=== PATIENT | male | born 1940 ===

== ENCOUNTER 2020-04-10 13:12 | Emergency (ER) | payer MEDICARE, OTHER, SELFPAY ==
--- NOTE | ~2020-04-10 | XR_ITS ---
EXAMINATION: XR elbow RT min 3V DATE: 04/10/2020 14:04 INDICATION: Right elbow injury. TECHNIQUE: 4 views of right elbow were obtained. COMPARISON: None. FINDINGS: Bone alignment is normal. No fracture. There is mild elbow joint osteoarthritis. There is a n enthesophyte at olecranon. No elbow joint effusion. Olecranon bursitis is noted. IMPRESSION: 1. Olecranon bursitis. 2. Mild elbow joint osteoarthritis. Reviewed, dictated and finalized at location E.
--- NOTE | 2020-04-10 13:20 | ED.UPPEXIN ---
HPI - Extremity Injury (Upper) General Chief Complaint: Extremity Injury, Upper Stated Complaint: Right Elbow Time Seen by Provider: 04/10/20 13:55 Source: patient and RN notes reviewed Mode of arrival: ambulatory Limitations: no limitations History of Present Illness HPI narrative: 80-year-old male presents with concern for swelling at the right elbow. Reports 1 week ago he bumped his elbow causing a small abrasion. He reports he noticed yesterday painless swelling at the outer elbow. He denies redness, warmth, pain, drainage. Denies elbow pain at rest or with range of motion. Denies fever. Denies wound drainage. Reports wound is scabbed. complaint: injury to: right and elbow Related Data Home Medications Medication Instructions Recorded Confirmed No Home Medications 04/10/20 04/10/20 Allergies Allergy/AdvReac Type Severity Reaction Status Date / Time No Known Allergies Allergy Verified 04/10/20 13:41 Review of Systems Review of Systems: Narrative: CONSTITUTIONAL: Denies malaise, chills, sweats, or fever. CARDIOVASCULAR: Denies chest pain, palpitations RESPIRATORY: Denies dyspnea. SKIN: Reports scab on the right elbow MUSCULOSKELETAL: Denies elbow pain, reports pocket of swelling at the elbow NEUROLOGIC: Denies numbness, weakness. All systems reviewed & are unremarkable except as noted in HPI and below PMFSH Family History Family History (Updated 07/17/14 @ 07:13 by DOCTOR UNKNOWN) Father Family history of Alzheimer's disease Sibling Malignant neoplasm of prostate Social History Social History Smoking status: Former smoker Smoking end date: 11/20/15 Alcohol intake: never Comments At time of signature, agree with nursing past medical, surgical, social and family history. There is no relevant family history pertinent to the presenting complaint Exam Narrative: Exam Narrative: GENERAL: Well-appearing, well-nourished, and in no acute distress. HEAD: Normocephalic, atraumatic. EYES: PERRLA, conjunctivae clear NECK: Supple. CHEST: Speaks in full sentences. No respiratory distress. HEART: Regular rate and rhythm. Normal and equal peripheral pulses. EXTREMITIES: Right elbow, arm, hand, digits has normal strength and sensation, normal range of motion. 5/5 strength with elbow flexion and extension. No pain with range of motion. Normal sensation with sensitivity to light touch and pain. No open wounds, no skin tenting, no devitalized tissue or atrophy, no trophic changes, no ecchymosis, no obvious osteo-deformity, alignment normal, no point tenderness, nearby joints and structures intact. Distal pulses palpable and equal bilaterally, skin warm, dry, pink. Capillary refill less than 3 seconds. Round pocket of soft edema noted at the ulnar head, nonfluctuant with no erythema, induration, warmth, tenderness. SKIN: Warm, dry, no rash. Healing scab noted in the center of the pocket of edema NEURO: Alert and oriented x3. PSYCH: Normal mood and affect Course Course Emergency Course: Patient is aware of diagnosis, understands and agrees to treatment plan. Anticipatory guidance given. Patient agrees to follow-up as directed and is aware of reasons to seek care at the emergency department. Portions of this record may have been created with voice recognition software Vital Signs Vital signs: Vital Signs Temperature 99.4 F 04/10/20 13:25 Pulse Rate 67 04/10/20 13:25 Respiratory Rate 16 04/10/20 13:25 Blood Pressure 157/71 H 04/10/20 13:25 Pulse Oximetry 96 04/10/20 13:25 Temperature 99.4 F 04/10/20 13:25 Pulse Rate 67 04/10/20 13:25 Respiratory Rate 16 04/10/20 13:25 Blood Pressure 157/71 H 04/10/20 13:25 Pulse Oximetry 96 04/10/20 13:25 Reviewed. Pt has been instructed to follow up with his primary care provider within the next week regarding his elevated blood pressure today. MDM - Extremity Injury (Upper) MDM Narrative Medical decision making narrative: P
[2020-04-10 13:25] VITALS: BP 157/71; PULSE 67; RESP 16; TEMP 37.4; O2SAT 96
== END 2020-04-10 14:32 | disposition home or self-care (01) ==
PROVIDERS: Emergency Provider Nurse Practitioner
DX: M70.21 Olecranon bursitis, right elbow (principal); M19.021 Primary osteoarthritis, right elbow; Z87.891 Personal history of nicotine dependence
CPT/HCPCS: 73080; 99203; G0463

== ENCOUNTER 2024-10-22 16:29 | Emergency (ER) | payer MEDICARE, OTHER, SELFPAY ==
[2024-10-22 16:36] VITALS: BP 173/70; PULSE 75; RESP 16; TEMP 36.4; O2SAT 94
[2024-10-22 17:17] LABS: EDCOVIDSCREEN Positive (Negative)
[2024-10-22 17:17] LABS: EDINFLUASCREEN Negative (Negative); EDINFLUBSCREEN Negative (Negative); EDSTREPNEGPOS1 Negative (Negative)
--- NOTE | 2024-10-22 17:58 | ED.GENADULT ---
HPI - General Adult General Chief complaint: Upper Respiratory Infection Stated complaint: throat/head cold Source: patient and family Mode of arrival: ambulatory Limitations: no limitations History of Present Illness HPI narrative: Patient presents for evaluation of respiratory symptoms since yesterday. Symptoms include sinus congestion, postnasal drainage, and cough. No fever, chills, nausea, vomiting, diarrhea. His ex- was recently sick and they both spent time with patient's daughter for the holiday. Patient has an underlying history of COPD was having serial CT scans every 6 months. There is a new area of concern on recent CT so interval was then changed to every 3 months. He had his last CT scan yesterday. 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 He is not taking any medication [id number] to assist with the symptoms. He smokes approximately 8 cigarettes per day. His daughter lives 5 blocks away from him and checks on him frequently. Related Data Home Medications Medication Instructions Recorded Confirmed amlodipine 10 mg tablet mg 10/22/24 finasteride 5 mg tablet mg 10/22/24 fluticasone fur. 100 mcg-umeclid inhalation 10/22/24 62.5 mcg-vilant 25 mcg inhalat.powder (Trelegy Ellipta) tamsulosin 0.4 mg capsule mg PO 10/22/24 Allergies Allergy/AdvReac Type Severity Reaction Status Date / Time No Known Allergies Allergy Verified 04/10/20 13:41 Review of Systems Review of Systems: CONSTITUTIONAL: Denies fever, chills, or sweats. EYES: Denies visual changes, redness, or discharge. ENT: Reports sinus congestion and postnasal drainage. Denies otalgia and sore throat CARDIOVASCULAR: Denies chest pain, palpitations, or edema. RESPIRATORY: Reports cough. Denies dyspnea. GASTROINTESTINAL: Denies abdominal pain, nausea, vomiting, or diarrhea. GENITOURINARY: Denies dysuria or hematuria. SKIN: Denies rash or itching. MUSCULOSKELETAL: Denies back pain, joint pain, or myalgia. NEUROLOGIC: Denies headache, numbness, dizziness, or weakness. PSYCHIATRIC: Denies anxiety or depression. [facility], [facility] Past Medical History Medical History COPD (chronic obstructive pulmonary disease) Hypertension Surgical History Surgical History No pertinent past surgical history Family History Family History Father Family history of Alzheimer's disease Sibling Malignant neoplasm of prostate Social History Social History (Updated 10/22/24 @ 18:01 by Irvin Morales [facility], ) Smoking packs per day: 0.4 Smoking cigarettes per day: 8.0 Smoking status: Current every day smoker Smoking end date: 11/20/15 Alcohol intake: never Substance use: never Living arrangements: alone Gender identity (if verbalized by the patient): Male Sexual Orientation (if Verbalized by the Patient): Straight or Heterosexual Exam Narrative: GENERAL: Well-appearing, well-nourished, and in no acute distress. HEAD: Normocephalic, atraumatic. EYES: PERRLA and EOMI. ENT: Nares clear, no rhinorrhea or epistaxis. Mucous membranes moist. Oropharynx without tonsillar hypertrophy exudate or other lesions. Bilateral TMs pearly jordan nonbulging NECK: Supple. No adenopathy or masses. No carotid bruits or JVD CHEST: Wheezing in bilateral upper lobes. Cough present on exam HEART: Regular rate and rhythm. No murmur heard. Normal peripheral pulses. ABDOMEN: Soft, nontender, nondistended, normal active bowel sounds. EXTREMITIES: Normal range of motion. No edema. SKIN: Warm, dry, no rash. NEURO: No focal deficits. Alert and oriented x3. PSYCH: Normal mood and affect. Course Course Emergency Course: This is an 84-year-old male who presented for evaluation of respiratory symptoms. COVID positive. He does have some wheezing on exam. Will discharge with prednisone. O2 sats are normal on room air. Advised smoking cessation. I also recommended he contact his school bus mechanic tomorrow for an appointment. He had a CT scan yesterday so chest x-ray was not performed today. He should follow-up with his primary provider and should contact them tomorrow to determine whether they can start him on medication for smoking cessation. In the event that he has worsening symptoms he should go to the emergency department. His daughter, present today, will check on him frequently. Patient and family in agreement with plan of care Level of Care: Express Care Visit Vital Signs Vital signs: Vital Signs Temperature 36.4 C 10/22/24 16:36 Pulse Rate 75 10/22/24 16:36 Respiratory Rate 16 10/22/24 16:36 Blood Pressure 173/70 H 10/22/24 16:36 Pulse Oximetry 94 10/22/24 16:36 Oxygen Delivery Room Air 10/22/24 16:36 Temperature 36.4 C 10/22/24 16:36 Pulse Rate 75 10/22/24 16:36 Respiratory Rate 16 10/22/24 16:36 Blood Pressure 173/70 H 10/22/24 16:36 Pulse Oximetry 94 10/22/24 16:36 Oxygen Delivery Room Air 10/22/24 16:36 Medical Decision Making Vital Signs Vital Signs: Vital Signs Temperature 36.4 C 10/22/24 16:36 Pulse Rate 75 10/22/24 16:36 Respiratory Rate 16 10/22/24 16:36 Blood Pressure 173/70 H 10/22/24 16:36 Pulse Oximetry 94 10/22/24 16:36 Oxygen Delivery Room Air 10/22/24 16:36 Temperature 36.4 C 10/22/24 16:36 Pulse Rate 75 10/22/24 16:36 Respiratory Rate 16 10/22/24 16:36 Blood Pressure 173/70 H 10/22/24 16:36 Pulse Oximetry 94 10/22/24 16:36 Oxygen Delivery Room Air 10/22/24 16:36 Lab Data Labs: Lab Results 10/22/24 10/22/24 Range/Units 16:40 16:46 POC Influenza A Ag Negative (Negative) POC Influenza B Ag Negative (Negative) POC SARS CoV-2 Ag Positive (Negative) POC Grp A Strep Screen Negative (Negative) Discharge Plan Discharge Clinical Impression: COVID, COPD exacerbation Patient Disposition: Home, Self-Care Condition: Stable Instructions: Antibiotic Form, COPD (Chronic Obstructive Pulmonary Disease) (DC), COVID-19 (Coronavirus Disease 2019) (ED) Additional Instructions: PLEASE CALL YOUR PRIMARY CARE PROVIDER TO DETERMINE WHETHER THEY COULD START YOU ON WELLBUTRIN OR CHANTIX TO QUIT SMOKING PLEASE CALL DR LAGUERRE TOMORROW FOR FOLLOW UP Patient Language: Portuguese Prescriptions: New prednisone 50 mg tablet 50 mg PO DAILY Qty: 5 0RF albuterol sulfate 90 mcg/actuation HFA aerosol inhaler 2 puff inhalation QID PRN (Reason: shortness of breath or wheezing) Qty: 8.5 0RF No Action tamsulosin 0.4 mg capsule PO amlodipine 10 mg tablet finasteride 5 mg tablet Trelegy Ellipta 100-62.5-25 mcg blister with device INHALATION Follow-up/Referrals: Mary,JULIO Ruboi [Primary Care Provider] - Time of Disposition: 17:57
== END 2024-10-22 18:00 | disposition home or self-care (01) ==
PROVIDERS: Emergency Provider Nurse Practitioner; PCP Physician Assistant
DX: U07.1 COVID-19 (principal); J44.1 Chronic obstructive pulmonary disease with (acute) exacerbation; I10 Essential (primary) hypertension; F17.210 Nicotine dependence, cigarettes, uncomplicated
CPT/HCPCS: 87081; 87426; 87804; 87880; 99213; G0463